=== PATIENT | male | born 1950 | race Caucasian/White ===

== ENCOUNTER 2016-07-24 | Outpatient (CLI) | payer MEDICARE, MEDICAID | END 2016-07-24 15:49 | disposition critical access hospital (66) | CPT/HCPCS: A0425; A0429 ==

== ENCOUNTER 2016-07-24 16:08 | Emergency (ER) | payer MEDICARE, MEDICAID ==
[2016-07-24] MEDS ORDERED: CEPHALEXIN 250 MG CAPSULE PO STA (18:27)
[2016-07-24] MEDS ORDERED: CEPHALEXIN 250 MG CAPSULE PO ONE (18:31)
== END 2016-07-24 19:02 | disposition home or self-care (01) ==
DX: N30.01 Acute cystitis with hematuria (principal); R41.0 Disorientation, unspecified; I10 Essential (primary) hypertension; E11.51 Type 2 diabetes mellitus with diabetic peripheral angiopathy without gangrene; Z79.84 Long term (current) use of oral hypoglycemic drugs; Z86.73 Personal history of transient ischemic attack (TIA), and cerebral infarction without residual deficits; Z79.82 Long term (current) use of aspirin
CPT/HCPCS: 36415; 80053; 80306; 81001; 82550; 83605; 83690; 83735; 85025; 87077; 87086; 99283; 99284; A9270; G0480

== ENCOUNTER 2016-07-25 | Outpatient (CLI) | payer MEDICARE, MEDICAID | END 2016-07-25 15:26 | disposition short-term general hospital (02) | DX: R73.09 Other abnormal glucose (principal) | CPT/HCPCS: A0425; A0427; A0888 ==

== ENCOUNTER 2016-08-23 15:52 | Outpatient (CLI) | payer MEDICARE, MEDICAID | END 2016-08-23 15:53 | disposition critical access hospital (66) | DX: R42 Dizziness and giddiness (principal) | CPT/HCPCS: A0425; A0429 ==

== ENCOUNTER 2016-08-23 16:14 | Emergency (ER) | payer MEDICARE, MEDICAID ==
[2016-08-23] MEDS ORDERED: CIPROFLOXACIN 250 MG TABLET PO STA (20:48)
[2016-08-23] MEDS ORDERED: CIPROFLOXACIN 250 MG TABLET PO ONE (20:52)
== END 2016-08-23 21:10 | disposition home or self-care (01) ==
DX: R42 Dizziness and giddiness (principal); N39.0 Urinary tract infection, site not specified; R53.1 Weakness; H54.41 Blindness, right eye, normal vision left eye; I10 Essential (primary) hypertension; E11.51 Type 2 diabetes mellitus with diabetic peripheral angiopathy without gangrene; Z79.84 Long term (current) use of oral hypoglycemic drugs; Z86.73 Personal history of transient ischemic attack (TIA), and cerebral infarction without residual deficits; Z79.82 Long term (current) use of aspirin
CPT/HCPCS: 36415; 70450; 80048; 81001; 84484; 85025; 87086; 93005; 93010; 93880; 99284; A9270

== ENCOUNTER 2016-09-04 15:00 | Outpatient (CLI) | payer MEDICARE, MEDICAID | END 2016-09-04 15:01 | DX: R31.9 Hematuria, unspecified (principal) ==

== ENCOUNTER 2016-10-16 15:25 | Outpatient (CLI) | payer MEDICARE, MEDICAID | END 2016-10-16 15:26 | disposition home or self-care (01) | DX: I10 Essential (primary) hypertension (principal); E11.9 Type 2 diabetes mellitus without complications ==

== ENCOUNTER 2017-02-12 11:52 | Outpatient (CLI) | payer MEDICARE, MEDICAID | END 2017-02-12 11:53 | disposition critical access hospital (66) | LOC: EMS 11:52 | PROVIDERS: ATTEND Surgery | DX: R56.9 Unspecified convulsions (principal) | CPT/HCPCS: A0425; A0427 ==

== ENCOUNTER 2017-02-12 12:14 | Inpatient (IN) | payer MEDICARE, MEDICAID ==
[2017-02-12 13:02] LABS: BASOPHILS # (AUTO) 0.1 10^3/uL (0.0-0.1); BASOPHILS % (AUTO) 0.8 %; EOSINOPHILS # (AUTO) 0.2 10^3/uL (0.0-0.7); EOSINOPHILS % (AUTO) 2.5 %; HCT - HEMATOCRIT 42.7 % (42.0-52.0); HGB - HEMOGLOBIN 14.5 g/dL (14.0-18.0); LYMPHOCYTES # (AUTO) 0.6 10^3/uL (1.5-3.5); LYMPHOCYTES % (AUTO) 9.6 %; MEAN CORPUSCULAR HEMOGLOBIN 27.7 pg (27.0-31.0); MEAN CORPUSCULAR VOLUME 81.6 fL (80.0-94.0); MEAN PLATELET VOLUME 7.4 fL (7.4-11.4); MONOCYTES # (AUTO) 0.3 10^3/uL (0.0-1.0); NEUTROPHILS % (AUTO) 82.1 %; NUCLEATED RED BLOOD CELLS AUTO 0.1 /100WBC; RED BLOOD COUNT 5.23 10^6/uL (4.70-6.10); RED CELL DISTRIBUTION WIDTH 13.8 % (12.0-15.0); UNCORRECTED WHITE BLOOD COUNT 6.1 x10^3/uL; WHITE BLOOD COUNT 6.1 x10^3/uL (4.8-10.8)
--- NOTE | 2017-02-12 13:05 | ED Physician Documentation ---
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, s/p cerebral stent placed at [facility] in 2014 per EMS, care rep reports a hx of seizures but this has not been noted is prior ER notes nor is pt on any seizure medications so I am not sure this is accurate had a seizure today witnessed by a "bacteriologist medical" per EMS pt was reported to have been seated in a chair and started generalized seizure with LOC and slid out of the chair landing first on his buttocks and then tipping over and hitting his head and ending up face down followed by post ictal period FSBS was 150s no other hx is obtainable - do not know if pt has had fever cough 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 Review of Systems Unable to obtain: Unresponsive Eyes: reports: Loss of vision (blinf R eye) Neurologic: reports: Seizure, Head injury PD PAST MEDICAL HISTORY - Past Medical History Cardiovascular: Hypertension, High cholesterol, Peripheral Vascular Disease Respiratory: None Neuro: CVA Endocrine/Autoimmune: Type 2 diabetes GI: None : None HEENT: Glaucoma Psych: None Musculoskeletal: Osteoarthritis Derm: None - Past Surgical History Past Surgical History: Yes Ortho: Amputation - Present Medications Home Medications: Ambulatory Orders Medication Instructions Recorded Confirmed Amlodipine Besylate 5 mg PO DAILY 06/18/16 07/24/16 Aspirin [Aspirin EC] 81 mg PO DAILY 06/18/16 07/24/16 Metformin HCl [Metformin HCl ER] 500 mg PO DAILYWM 06/18/16 07/24/16 Lisinopril 40 mg PO 02/12/17 - Allergies Allergies/Adverse Reactions: Allergies Allergy/AdvReac Type Severity Reaction Status Date / Time No Known Drug Allergies Allergy Verified 02/12/17 12:19 - Social History Does the pt smoke?: No Smoking Status: Never smoker Does the pt drink ETOH?: No Does the pt have substance abuse?: Yes - Immunizations Immunizations are current?: Yes PD ED PE NORMAL - Vitals Vital signs reviewed: Yes (little tachy) - General General: No: Alert and oriented X 3 (not responding, still post ictal) - HEENT HEENT: No: PERRL (blind cloudy r eye) - Neck Neck: No bony TTP (but too altered to clear) - Cardiac Cardiac: RRR (tachy) - Respiratory Respiratory: No respiratory distress, Clear bilaterally - Abdomen Abdomen: Soft, Non tender (though AMS) - Derm Derm: Normal color - Extremities Extremities: No deformity - Neuro Neuro: No: Alert and oriented X 3 Results - Vitals Vitals: Vital Signs - 24 hr 02/12/17 02/12/17 02/12/17 12:15 14:14 15:30 Temperature 36.8 C Heart Rate 113 H 114 H 119 H Respiratory 16 18 23 Rate Blood Pressure 166/76 H 178/84 H 159/80 H O2 Saturation 99 100 95 Oxygen O2 Source [With Activity] Room air O2 Source Room air - Labs Labs: Laboratory Tests 02/12/17 02/12/17 02/12/17 12:52 12:52 16:05 WBC 6.1 RBC 5.23 Hgb 14.5 Hct 42.7 MCV 81.6 MCH 27.7 MCHC 34.0 RDW 13.8 Plt Count 235 MPV 7.4 Neut # 5.0 Lymph # 0.6 L Karnes # 0.3 Eos # 0.2 Baso # 0.1 Absolute Nucleated RBC 0.00 Nucleated RBCs 0.1 Sodium 135 Potassium 4.5 Chloride 99 L Carbon Dioxide 26 Anion Gap 10.0 BUN 10 Creatinine 1.2 Estimated GFR (MDRD) 61 L Glucose 159 H Calcium 9.5 Urine Color YELLOW Urine Clarity CLEAR Urine pH 8.0 H Ur Specific [place] 1.020 Urine Protein 30 H Urine Glucose (UA) 250 H Urine Ketones NEGATIVE Urine Occult Blood TRACE-INTA Urine Nitrite NEGATIVE Urine Bilirubin NEGATIVE Urine Urobilinogen 0.2 (NORMAL) Ur Leukocyte Esterase NEGATIVE Urine RBC 0-5 Urine WBC 4-5 Ur Squamous Epith Cells RARE Squamous Urine Bacteria Many H Ur Microscopic Review INDICATED Urine Culture Comments INDICATED Urine Opiates Screen Ur Oxycodone Screen Urine Methadone Screen Ur Propoxyphene Screen Ur Barbiturates Screen Ur Tricyclics Screen Ur Phencyclidine Scrn Ur Amphetamine Screen U Methamphetamines Scrn U Benzodiazepines Scrn Urine Cocaine Screen U Cannabinoids Screen 02/12/17 16:05 WBC RBC Hgb Hct MCV MCH MCHC RDW Plt Count MPV Neut # Lymph # Karnes # Eos # Baso # Absolute Nucleated RBC Nucleated RBCs Sodium Potassium Chloride Carbon Dioxide Anion Gap BUN Creatinine Estimated GFR (MDRD) Glucose Calcium Urine Color Urine Clarity Urine pH Ur Specific [place] Urine Protein Urine Glucose (UA) Urine Ketones Urine Occult Blood Urine Nitrite Urine Bilirubin Urine Urobilinogen Ur Leukocyte Esterase Urine RBC Urine WBC Ur Squamous Epith Cells Urine Bacteria Ur Microscopic Review Urine Culture Comments Urine Opiates Screen NEGATIVE Ur Oxycodone Screen NEGATIVE Urine Methadone Screen NEGATIVE Ur Propoxyphene Screen NEGATIVE Ur Barbiturates Screen NEGATIVE Ur Tricyclics Screen NEGATIVE Ur Phencyclidine Scrn NEGATIVE Ur Amphetamine Screen NEGATIVE U Methamphetamines Scrn NEGATIVE U Benzodiazepines Scrn NEGATIVE Urine Cocaine Screen NEGATIVE U Cannabinoids Screen POSITIVE H - Rads (name of study) CTH Radiology: See rad report (no acute) CT CS Radiology: See rad report (degen changes no fx, enlarged thyroid consider thyroid sono (defer to inpt and or PMD as pt to altered to remember right now)) CTA brain Radiology: See rad report (no mass no acute abn, old R infarct, age indet severe segmental stenosis vs occlusion 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, pastent L ICA stent, congenitally small vs steotic prox L ANGELICA A1 seg, no deering will aneurysm seen, consider compare to prior imaging, mild R maxillary sinusitis) CTA neck Radiology: See rad report (no acute) CXR Radiology: See rad report (network applications specialist stable bilateral hilar enlargement and wide mediastinum c/w benign adenopathy or pulm HTN, NACPD) PD MEDICAL DECISION MAKING - ED course ED course: received records from PMD - no hx seizures pt seemed to improved and was talking with the nurse and told her he had no pain / no headache and cooperating with providing a urine sample etc and per caregiver was close to baseline then acute worse, very agitated and confused trying to climb out of bed not communicating or answering questions will get CTA brain - if + transfer - if neg admit to for AMS for MRI etc chart review shows pt was admitted for very similar sx in Jun 2016 and gradually cleared and was able to be dced though cause does not seem to have been identified plan to admit - hospitalist Dr Pillai in ER evaluating pt and he had another seizure - given ativan etiology unclear - got PMD records and don't actually see a hx of seizures despite EMS report - don't know if pt drinks, no reported fever, pt denies a HANNAH , maybe needs MRI but cannot cooperate with same right now pt continued to have episodes of some clonic stiffening but not clear seizure activity - was given ativan and then loaded on keppra - is now somnolent pt going to ICU hospitalist and I discussed and pt may need to be intubated if he deos not start to wake up again as he did earlier, afebrile and denied a HANNAH but etiology unclear so perhaps an LP - hospitalist advises than can req anesthesia to assist in the ICU due to high acuity and volume in the single coverage ED at this time CTA results called to hospitalist Dr Pillai Departure - Departure Disposition: 66 [facility] DC/Xfer Clinical Impression: Altered mental status Qualifiers: Altered mental status type: unspecified Qualified Code(s): R41.82 - Altered mental status, unspecified Condition: Fair Discharge Date/Time: 02/12/17 19:00
[2017-02-12 13:11] LABS: CALCIUM 9.5 mg/dL (8.5-10.3); CREATININE 1.2 mg/dL (0.6-1.2); POTASSIUM 4.5 mmol/L (3.5-5.0)
--- NOTE | 2017-02-12 14:23 | CT Preliminary Report ---
Exam: CT Head W/O IMPRESSION: Stable head CT compared with 08/23/2016. No acute intracranial findings noted. Chronic ch anges are present. [facility] SITE ID: [id number]
--- NOTE | 2017-02-12 14:25 | CT Report ---
EXAM: CT HEAD EXAM DATE: 02/12/2017 01:50 PM. CLINICAL HISTORY: Seizure fell out of chair hit head. COMPARISON: 08/23/2016 TECHNIQUE: Multiaxial CT images were obtained from the foramen magnum to the vertex. IV contrast: Non e. Reformats: Coronal. In accordance with CT protocol optimization, one or more of the following dose reduction techniques w ere utilized for this exam: automated exposure control, adjustment of mA and/or KV based on patient s ize, or use of iterative reconstructive technique. FINDINGS: Parenchyma: No intraparenchymal hemorrhage. No evidence of mass, midline shift, or CT findings of acu te infarction. Old right occipital lobe infarction as before. Miller-white differentiation is distinct. Extraaxial Spaces: Normal for age. No subdural or epidural collections identified. Ventricles: Normal in size and position. Sinuses: Membrane thickening right maxillary sinus. Other Imaged paranasal sinuses, orbits, and masto ids show no significant abnormality. Bones: No evidence of fracture or calvarial defect. Other: None. IMPRESSION: Stable head CT compared with 08/23/2016. No acute intracranial findings noted. Chronic ch anges are present. [facility] Referring Provider Line: [phone] SITE ID: [id number]
--- NOTE | 2017-02-12 14:31 | CT Preliminary Report ---
Exam: CT Cervical Spine W/O IMPRESSION: Degenerative change cervical spine without superimposed acute findings when compared with 06/18/2016. Incidental note made of an enlarged thyroid. Suggest correlation with thyroid ultrasound [facility] SITE ID: [id number]
--- NOTE | 2017-02-12 14:33 | CT Report ---
EXAM: CT CERVICAL SPINE WITHOUT CONTRAST DATE: 02/12/2017 01:50 PM HISTORY: Seizure fell out of chair neck pain COMPARISONS: 06/18/2016 TECHNIQUE: Thin-section axial images were acquired of the cervical spine without contrast. Post-proce ssing: Coronal and sagittal reformats. Other: None. In accordance with CT protocol optimization, one or more of the following dose reduction techniques w ere utilized for this exam: automated exposure control, adjustment of mA and/or KV based on patient s ize, or use of iterative reconstructive technique. FINDINGS: Alignment: Normal. No scoliosis or spondylolisthesis. Bones: No fracture or bone lesion. Degenerative endplate irregularity of C3, C4, C6, and C7. Interspace Levels/Facets: C1-C2 through C7-T1: Moderate stable disk space narrowing C3-C4 and C6-C7. Remaining disk spaces well maintained. Musculature: Normal. No fatty atrophy. Other: Enlarged thyroid gland with calcification and a low attenuation nodule on the right and calci fication on the lower left. Suggest correlation with thyroid ultrasound IMPRESSION: Degenerative change cervical spine without superimposed acute findings when compared with 06/18/2016. Incidental note made of an enlarged thyroid. Suggest correlation with thyroid ultrasound [facility] Referring Provider Line: [phone] SITE ID: [id number]
[2017-02-12] MEDS ORDERED: LORazepam 2 MG/ML SYRINGE IVP STA ×4 (15:39→17:31)
[2017-02-12] MEDS ORDERED: LORazepam 2 MG/ML SYRINGE ONE ×4 (15:44→17:21)
[2017-02-12 16:40] LABS: BILIRUBIN,URINE NEGATIVE (NEGATIVE)
[2017-02-12 16:42] LABS: UA w/ MICROSCOPIC CHARGE YES
--- NOTE | 2017-02-12 16:45 | XRAY Preliminary Report ---
Exam: XR Chest 1 View IMPRESSION: 1. Long-term stability of the bilateral hilar enlargement and mediastinal widening consistent with be nign adenopathy or pulmonary arterial hypertension. 2. No acute cardiopulmonary abnormality. [facility] SITE ID: [id number]
[2017-02-12 16:46] LABS: UR CULTURE IF IND INDICATED
[2017-02-12] MEDS ORDERED: PROCHLORPERAZINE 10 MG/2 ML VIAL IVP PRN (16:49)
[2017-02-12] MEDS ORDERED: ONDANSETRON 4 MG/2 ML VIAL IVP PRN (16:49)
[2017-02-12] MEDS ORDERED: SODIUM CHLORIDE FLUSH 0.9% 10 ML SYRINGE IVP PRN (16:49)
[2017-02-12] MEDS ORDERED: oxyCODONE 5 MG TABLET PO PRN (16:49)
[2017-02-12] MEDS ORDERED: ACETAMINOPHEN 325 MG TABLET PO PRN (16:49)
--- NOTE | 2017-02-12 16:54 | XRAY Report ---
EXAM: CHEST RADIOGRAPHY EXAM DATE: 02/12/2017 04:31 PM. CLINICAL HISTORY: Altered mental status. COMPARISON: 06/18/2016. 06/25/2014. TECHNIQUE: 1 view. FINDINGS: Lungs/Pleura: No focal opacities evident. No pleural effusion. No pneumothorax. Normal lung volumes. Mediastinum: Stable bilateral hilar enlargement since 06/25/2014. Stable widening of the paratracheal stripes since 06/25/2014. Heart is a normal caliber. Other: None. IMPRESSION: 1. Long-term stability of the bilateral hilar enlargement and mediastinal widening consistent with be nign adenopathy or pulmonary arterial hypertension. 2. No acute cardiopulmonary abnormality. [facility] Referring Provider Line: [phone] SITE ID: [id number]
[2017-02-12] MEDS ORDERED: IOPAMIDOL-300 100 ML VIAL IVP ONE (17:03)
[2017-02-12] MEDS: SODIUM CHLORIDE 0.9% 1,000 ML IV SCH (17:30)
--- NOTE | 2017-02-12 17:39 | CT Preliminary Report ---
Exam: CT Neck Angio IMPRESSION (neck CTA): No acute abnormality or significant stenosis of the cervical vertebral or veloz tid arteries. [facility] SITE ID: [id number]
[2017-02-12] MEDS: levETIRAcetam INJ 500 MG in SODIUM CHLORIDE 0.9% 100ML 100 ML IV SCH (17:40)
[2017-02-12] MEDS: LORazepam 2 MG/ML SYRINGE IVP PRN ×2 (17:41→17:51)
--- NOTE | 2017-02-12 17:41 | CT Report ---
EXAM: CT ANGIOGRAM NECK EXAM DATE: 02/12/2017 04:36 PM. CLINICAL HISTORY: Seizure, altered mental status, history of aneurysm. COMPARISON: No prior neck CTA. TECHNIQUE: Routine axial helical imaging was performed from the skull base through the aortic arch. I V Contrast: 80 mL Isovue 300. Reconstructions: Routine multiplanar 3D MIP reconstructions. Evaluation of arterial stenosis is based on a NASCET method of measurement. In accordance with CT protocol optimization, one or more of the following dose reduction techniques w ere utilized for this exam: automated exposure control, adjustment of mA and/or KV based on patient s ize, or use of iterative reconstructive technique. FINDINGS: Moderately enlarged thyroid gland with scattered punctate calcifications and multiple hypodense nodul es or cysts. Mild to moderate chronic multilevel degenerative cervical spinal spondylosis. Congenitally small right cervical vertebral artery, no acute abnormality or flow limiting stenosis id entified. Unremarkable appearance of the congenitally dominant left cervical vertebral artery. No evidence for acute abnormality or focal flow limiting stenosis of the cervical carotid arteries. N egligible atherosclerotic changes. Mild atherosclerotic calcifications its top of the aortic arch. The origins of the great vessels are patent. IMPRESSION: No acute abnormality or significant stenosis of the cervical vertebral or carotid arterie s. [facility] Referring Provider Line: [phone] SITE ID: [id number]
--- NOTE | 2017-02-12 18:01 | CT Preliminary Report ---
Exam: CT Head Angio IMPRESSION: 1. No CT evidence for acute intracranial abnormality or enhancing mass. 2. Moderately prominent but old infarct of the medial right parieto-occipital region. 3. 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 4. Patent appearing distal left ICA stent. 5. Congenitally small versus stenotic proximal left ANGELICA A1 segment. 6. No definite evidence for patent [place] of [place] aneurysm. Given history of aneurysm, comparison w ith prior imaging studies that have confirmed the presence of an aneurysm is suggested, if those rele vant imaging studies can be provided, a comparison addendum can be generated. 7. Mild right maxillary sinusitis. [facility] SITE ID: [id number]
[2017-02-12 18:14] LABS: HEMOGLOBIN A1C 0.82 g/dL
--- NOTE | 2017-02-12 18:16 | CT Report ---
EXAM: CT ANGIOGRAM HEAD EXAM DATE: 02/12/2017 04:36 PM. CLINICAL HISTORY: Altered mental status, seizure, history of aneurysm. COMPARISON: CT of the brain without contrast 06/25/2014. Additional prior head imaging has been perfo rmed including MRI of the brain 06/25/2014, CT of the head without contrast also on 09/08/2015 and as well as 08/23/2016 and 02/12/2017 (at 1349 hrs). TECHNIQUE: Routine helical CTA imaging was performed through the head. IV Contrast: Without and with 80 mL Isovue 300. Reconstructions: Routine multiplanar 3D MIP reconstructions. NASCET Criteria are us ed for stenosis measurements. In accordance with CT protocol optimization, one or more of the following dose reduction techniques w ere utilized for this exam: automated exposure control, adjustment of mA and/or KV based on patient s ize, or use of iterative reconstructive technique. FINDINGS: Brain CT without contrast: Chronic encephalomalacia and gliosis in the medial right parieto-occipital region measuring up to 4 x 3 cm in cross section. This is consistent with an old ischemic infarct. Mild diffuse atrophy. No hyd rocephalus, mass effect, midline shift or evidence for acute cortical infarct or hemorrhage. Small right maxillary sinus air-fluid level with minimal mucosal thickening that likely represents si nus inflammation. Brain CT with contrast: No abnormal enhancement. Head CT angiogram: Patent but congenitally very small right intradural vertebral artery. Unremarkable appearance of the left intradural vertebral artery and basilar artery. Unremarkable appearance of the left ACCOUNTS PAYABLE SUPERVISOR which ap pears to arise from a origin. Patent but small, irregular and potentially stenotic right service unit operator ior communicating artery. Age-indeterminate severe segmental stenosis versus occlusion in the region of the right ACCOUNTS PAYABLE SUPERVISOR P2P3 rula ction. This abnormal segment of artery measures about 3-4 mm in length. Contrast opacification of the lumen of the right ACCOUNTS PAYABLE SUPERVISOR is present on both sides of this lesion. The distal internal carotid arteries appear to be patent. There are findings of previous stent placem ent on the left beginning at the level of the proximal cavernous ICA and ending at the level of the l eft P-comm origin. Patent well-developed right ANGELICA A1 segment. Hypoplastic versus occluded proximal left ANGELICA A1 segment. Unremarkable anterior communicating artery. No other evidence for proximal ANGELICA abnormality. No proximal flow limiting stenosis or occlusion of the middle cerebral arteries. This study does not demonstrate a contrast opacified aneurysm of the pilot station of Amaral. IMPRESSION: 1. No CT evidence for acute intracranial abnormality or enhancing mass. 2. Moderately prominent but but old infarct of the medial right parieto-occipital region. 3. Age-indeterminate severe segmental stenosis versus occlusion of the right ACCOUNTS PAYABLE SUPERVISOR at the P2P3 junctio n. 4. Patent-appearing distal left ICA stent. 5. Congenitally small versus stenotic proximal left ANGELICA A1 segment. 6. No definite evidence for patent pilot station of [place]ar[place] aneurysm. Given the history of aneurysm, comparis on with prior imaging studies that have confirmed the presence of an aneurysm is suggested, if those relevant imaging studies can be provided, a comparison addendum can be generated. 7. Mild right maxillary sinusitis. [facility] Referring Provider Line: [phone] SITE ID: [id number]
[2017-02-12 18:40] LABS: FOLATE 9.39 ng/mL (5.90 - >24.8)
[2017-02-12 18:49] LABS: THYROID STIMULATING HORMONE 1.49 uIU/mL (0.34-5.60)
[2017-02-12] MEDS ORDERED: CYANOCOBALAMIN 1,000 MCG/ML VIAL IM SCH (19:03)
--- NOTE | 2017-02-12 19:15 | HISTORY & PHYSICAL EXAMINATION ---
Chief Complaint - Chief Complaint Chief Complaint: Altered mental status History of Present Illness - Admitted From Admitted From:: Emergency Department - History Obtained From Records Reviewed: Yes History obtained from: Medical records, emergency room records, patients caregiver Exam Limitations: Patient unresponsive, non verbal unable to provide history - History of Present Illness HPI Comment/Other: Patient is a 66-year-old gentleman with a past medical history significant for diabetes, peripheral vascular disease, CKG, peripheral neuropathy, retinopathy, hypertension, right-sided occipital infarct and cerebral aneurysm with a left ICA stent who presented to the emergency department with a chief complaint of altered mental status. The patient was unable to provide any history as he was nonverbal and barely arousable when I saw the patient. The history was derived from the patient's medical records, history obtained by the emergency room physician and nursing staff as well as from the patient's caregiver. The patient was in his normal state of health until this morning when his caregiver noted the patient had a witnessed seizure that lasted about 2 minutes. The caregiver called 911 on arrival of EMS the patient's blood sugar was 156 patient was drowsy and nonverbal for EMS. The patient was brought into the emergency department. Initially the emergency department the patient was post ictal he was very drowsy difficult to arouse. Eventually the patient seemed to return to his baseline mental status as he was answering questions appropriately, was easy to understand and was even following commands. The patient got up to the side of the bed asked if he could urinate and use the urinal to urinate. When I arrived in the emergency department the patient appeared again to be seizing he was very rigid turned over to his right side and shaking. The patient again was post ictal and very slow to respond, nonverbal. During the remainder of his time in the emergency department the patient continued to have episodes of what appeared to be seizure activity. The patient received a total of 6 mg of IV Ativan in the emergency department. The patient was then quite drowsy prior to being admitted to the ICU. The patient appeared to be in status epilepticus. Patient underwent extensive workup in the emergency department including electrolytes which were within normal limits. The patient's B12 was slightly decreased but otherwise remainder of his labs are within normal limits. Patient did not have any leukocytosis or anemia. Patient's urine showed 4-5 WBCs with many bacteria however had negative leukocyte esterase and negative nitrates. Patient's urine tox was negative for alcohol. Patient underwent imaging with a chest x-ray which did not show any acute process. Patient also had a CT of his cervical spine which showed degenerative changes of the cervical spine without superposed acute findings. Patient was found to have incidental enlarged thyroid. The patient's TSH was normal. The CT of the patient's head showed no acute intracranial findings. CT of the patient' s head showed no evidence for acute intracranial abnormality or enhancing mass. It did show an age indeterminate severe segmental stenosis versus occlusion of the right NURSE P2-P3 junction. It also showed a moderately prominent but old infarct of the medial right parietal/occipital region. The patient did have a patent appearing distal left ICA stent. Given the patient's altered mental status and continued rigidity which appeared to be seizure-like activity the patient was admitted to the ICU and is low threshold for need to intubate given the amount of sedation that he has received. The patient was given Her IV prior to being admitted. Review of Systems - Other Findings Other Findings: unable to obtain secondary to patient being unresponsive and nonverbal. History - Past Medical History Cardiovascular: reports: Hypertension, High cholesterol, Peripheral Vascular Disease Respiratory: reports: None Neuro: reports: CVA, Peripheral neuropathy, Other (cerebral aneurysm) Endocrine/Autoimmune: reports: Type 2 diabetes GI: reports: None : reports: Renal insuffiency (CKD) HEENT: reports: Glaucoma Psych: reports: None Musculoskeletal: reports: Osteoarthritis Derm: reports: None MRSA Hx?: No - Past Surgical History Ortho: reports: Amputation - Family & Social History Family History Comment/Other: unable to obtain family history unresponsive and nonverbal. According to previous records patient's father when he was 12. Mother was diabetic and had a stroke. Social History Notes: Obtained from previous records. He is originally from [place], moved to [place] 2002. He lived here for work. 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 He lives on his own and [place] but has james workers who come into the home Saturday through Saturday. The patient does have a caregiver. He is an only child and both of his parents are . He said he is never been and he has no children. He does not smoke does not drink or use any illicit drugs. - Substance History Use: Uses substance without health or social issues: NONE Abuse: Recurrent use of substance despite neg consequences: NONE Dependence: Experiences withdrawal or developed tolerances: NONE - POLST Patient has POLST: No POLST Status: Full Code Meds/Allgy - Home Medications Home Medications: Ambulatory Orders Medication Instructions Recorded Confirmed Amlodipine Besylate 5 mg PO DAILY 06/18/16 07/24/16 Aspirin [Aspirin EC] 81 mg PO DAILY 06/18/16 07/24/16 Metformin HCl [Metformin HCl ER] 500 mg PO DAILYWM 06/18/16 07/24/16 Lisinopril 40 mg PO 02/12/17 - Allergies Allergies/Adverse Reactions: Allergies Allergy/AdvReac Type Severity Reaction Status Date / Time No Known Drug Allergies Allergy Verified 02/12/17 12:19 Exam - Vital Signs Reviewed Vital Signs: Yes Vital Signs: Vital Signs x48h Temp Pulse Resp BP Pulse Ox 02/12/17 17:52 37.5 C 109 H 23 166/93 H 97 02/12/17 17:30 120 H 24 148/124 H 97 - Physical Exam General Appearance: positive: Moderate distress (rigid with tonic-clonic), Other (nonverbal, very difficult to arouse.) Eyes Bilateral: positive: Normal inspection, PERRL, EOMI, No lid inflammation, Conjunctivae nml, No scleral icterus ENT: positive: ENT inspection nml, Pharynx nml, Dry mucous membranes. negative : Purulent nasal drainage, Pharyngeal erythema, Oral lesions Neck: positive: Nml inspection, Thyroid nml, No JVD, Trachea midline. negative : Thyromegaly, Lymphadenopathy (R), Lymphadenopathy (L), Carotid bruit, Tracheal deviation Respiratory: positive: Chest non-tender, No respiratory distress, Breath sounds nml. negative: Wheezes, Rales, Rhonchi Cardiovascular: positive: No murmur, No gallop, Tachycardia. negative: Systolic murmur, Diastolic murmur Peripheral Pulses: positive: 2+ Abdomen: positive: Non-tender, No organomegaly, Nml bowel sounds, No distention. negative: Guarding, Rebound, Hepatomegaly, Splenomegaly Back: positive: Nml inspection. negative: CVA tenderness (R), CVA tenderness (L ) Skin: positive: Color nml, No rash, Warm. negative: Cyanosis, Pallor Extremities: positive: Other (Cathy extremity) Neurologic/Psychiatric: positive: Other (patient unresponsive, barely arousable , nonverbal with rigid upper and lower extremities.) Conclusion/Plan - Problem List (1) Encephalopathy Conclusion/Plan: Appears to be likely secondary to seizure activity patient does have several areas of stenosis and old infarcts on CTA which could be origin for seizures No leukocytosis or fevers B12 slightly low but not enough to cause symptoms TSH normal RPR pending UA and CXR negative If patient spikes fever consider LP Plan: Started on keppra IV BID Ativan prn If patient continues to be unresponsive may need intubation We will consult neurology for further recs at [facility] for tomorrow Tele monitoring Neuro checks (2) Status epilepticus Conclusion/Plan: Patient presented with seizure at home and appeared to be post ictal He was initially improving but then had another episode of seizure activity followed by several more episodes requiring 6 mg IV ativan and IV keppra 500 mg to resolve patient now unresponsive and very sedated may need intubation Plan: Plan: Started on keppra IV BID Ativan prn If patient continues to be unresponsive may need intubation We will consult neurology for further recs at [facility] for tomorrow Tele monitoring Neuro checks (3) Hypertension Conclusion/Plan: BP very elevated when patient having seizures Will continue home meds Monitor closely Qualifiers: Hypertension type: essential hypertension Qualified Code(s): I10 - Essential (primary) hypertension (4) Diabetes Conclusion/Plan: Place on sliding scale insulin Hold metformin Check HbA1C BG well controlled DM diet Monitor BG Qualifiers: Diabetes mellitus type: type 2 Diabetes mellitus complication detail: with foot ulcer Diabetes mellitus assistant to the director insulin use: without assistant to the director use (5) History of CVA (cerebrovascular accident) Conclusion/Plan: On ASA at home but not lipitor Continue home dose of asa Check lipid profile MRI in the morning No evidence of acute stroke on CT or CTA (6) Vitamin B12 deficiency Conclusion/Plan: Replace B12 IM (7) Prophylactic use of low molecular weight heparin for venous thromboembolism Conclusion/Plan: Place on lovenox while hospitalized - Lab Results Lab results reviewed: Yes Fish Bones: 02/12/17 12:52 02/12/17 12:52 Other Lab Results: Laboratory Results WBC 6.1 x10^3/uL (4.8-10.8) 02/12/17 12:52 RBC 5.23 10^6/uL (4.70-6.10) 02/12/17 12:52 Hgb 14.5 g/dL (14.0-18.0) 02/12/17 12:52 Hct 42.7 % (42.0-52.0) 02/12/17 12:52 MCV 81.6 fL (80.0-94.0) 02/12/17 12:52 MCH 27.7 pg (27.0-31.0) 02/12/17 12:52 MCHC 34.0 g/dL (32.0-36.0) 02/12/17 12:52 RDW 13.8 % (12.0-15.0) 02/12/17 12:52 Plt Count 235 10^3/uL (130-450) 02/12/17 12:52 MPV 7.4 fL (7.4-11.4) 02/12/17 12:52 Neut # 5.0 10^3/uL (1.5-6.6) 02/12/17 12:52 Lymph # 0.6 10^3/uL (1.5-3.5) L 02/12/17 12:52 [place] # 0.3 10^3/uL (0.0-1.0) 02/12/17 12:52 Eos # 0.2 10^3/uL (0.0-0.7) 02/12/17 12:52 Baso # 0.1 10^3/uL (0.0-0.1) 02/12/17 12:52 Absolute Nucleated RBC 0.00 x10^3/uL 02/12/17 12:52 Nucleated RBCs 0.1 /100WBC 02/12/17 12:52 Sodium 135 mmol/L (135-145) 02/12/17 12:52 Potassium 4.5 mmol/L (3.5-5.0) 02/12/17 12:52 Chloride 99 mmol/L (101-111) L 02/12/17 12:52 Carbon Dioxide 26 mmol/L (21-32) 02/12/17 12:52 Anion Gap 10.0 (6-13) 02/12/17 12:52 BUN 10 mg/dL (6-20) 02/12/17 12:52 Creatinine 1.2 mg/dL (0.6-1.2) 02/12/17 12:52 Estimated GFR (MDRD) 61 (>89) L 02/12/17 12:52 Glucose 159 mg/dL (70-100) H 02/12/17 12:52 Glycated Hemoglobin 6.8 % (4.6-6.2) H 02/12/17 17:47 Estim Average Glucose 148 (70-100) H 02/12/17 17:47 Calcium 9.5 mg/dL (8.5-10.3) 02/12/17 12:52 Vitamin B12 141 pg/mL (180-914) L 02/12/17 17:47 Folate 9.39 ng/mL (5.90 - >24.8) 02/12/17 17:47 TSH 1.49 uIU/mL (0.34-5.60) 02/12/17 17:47 Urine Color YELLOW 02/12/17 16:05 Urine Clarity CLEAR (CLEAR) 02/12/17 16:05 Urine pH 8.0 PH (5.0-7.5) H 02/12/17 16:05 Ur Specific [place] 1.020 (1.002-1.030) 02/12/17 16:05 Urine Protein 30 mg/dL (NEGATIVE) H 02/12/17 16:05 Urine Glucose (UA) 250 mg/dL (NEGATIVE) H 02/12/17 16:05 Urine Ketones NEGATIVE mg/dL (NEGATIVE) 02/12/17 16:05 Urine Occult Blood TRACE-INTA (NEGATIVE) 02/12/17 16:05 Urine Nitrite NEGATIVE (NEGATIVE) 02/12/17 16:05 Urine Bilirubin NEGATIVE (NEGATIVE) 02/12/17 16:05 Urine Urobilinogen 0.2 (NORMAL) E.U./dL (NORMAL) 02/12/17 16:05 Ur Leukocyte Esterase NEGATIVE (NEGATIVE) 02/12/17 16:05 Urine RBC 0-5 /HPF (0-5) 02/12/17 16:05 Urine WBC 4-5 /HPF (0-3) 02/12/17 16:05 Ur Squamous Epith Cells RARE Squamous (<= Few) 02/12/17 16:05 Urine Bacteria Many /HPF (None Seen) H 02/12/17 16:05 Ur Microscopic Review INDICATED 02/12/17 16:05 Urine Culture Comments INDICATED 02/12/17 16:05 Ethyl Alcohol < 5.0 mg/dL 02/12/17 17:47 - Diagnostic Imaging Results Diagnostic Imaging Results: positive: Final report reviewed Diagnostic Imaging Results Comments: Patient underwent imaging with a chest x-ray which did not show any acute process. Patient also had a CT of his cervical spine which showed degenerative changes of the cervical spine without superposed acute findings. Patient was found to have incidental enlarged thyroid. The patient's TSH was normal. The CT of the patient's head showed no acute intracranial findings. CT of the patient' s head showed no evidence for acute intracranial abnormality or enhancing mass. It did show an age indeterminate severe segmental stenosis versus occlusion of the right NURSE P2-P3 junction. It also showed a moderately prominent but old infarct of the medial right parietal/occipital region. The patient did have a patent appearing distal left ICA stent. Issues/Core Measures - Anticipated LOS Anticipated Stay Length: 2 or more midnights - DVT/VTE - Prophylaxis VTE/DVT Prophylaxis med ordered at admit?: Yes
[2017-02-12] MEDS: INSULIN ASPART 300 UNIT/3 ML PEN SUBQ SCH ×2 (19:51→20:32)
[2017-02-12] MEDS ORDERED: SODIUM CHLORIDE FLUSH 0.9% 10 ML SYRINGE IVP ONE (19:53)
[2017-02-12] MEDS: SODIUM CHLORIDE FLUSH 0.9% 10 ML SYRINGE IVP SCH (21:15)
[2017-02-13] MEDS: SODIUM CHLORIDE 0.9% 1,000 ML IV SCH (00:54)
[2017-02-13] MEDS: SODIUM CHLORIDE FLUSH 0.9% 10 ML SYRINGE IVP SCH ×2 (01:53→10:19)
[2017-02-13 05:26] LABS: BASOPHILS # (AUTO) 0.1 10^3/uL (0.0-0.1); BASOPHILS % (AUTO) 0.6 %; EOSINOPHILS # (AUTO) 0.1 10^3/uL (0.0-0.7); EOSINOPHILS % (AUTO) 0.7 %; HCT - HEMATOCRIT 40.4 % (42.0-52.0); HGB - HEMOGLOBIN 13.8 g/dL (14.0-18.0); LYMPHOCYTES # (AUTO) 0.7 10^3/uL (1.5-3.5); LYMPHOCYTES % (AUTO) 8.1 %; MEAN CORPUSCULAR HEMOGLOBIN 28.2 pg (27.0-31.0); MEAN CORPUSCULAR VOLUME 82.8 fL (80.0-94.0); MEAN PLATELET VOLUME 7.4 fL (7.4-11.4); MONOCYTES # (AUTO) 0.6 10^3/uL (0.0-1.0); MONOCYTES % (AUTO) 6.1 %; NEUTROPHILS # (AUTO) 7.8 10^3/uL (1.5-6.6); NEUTROPHILS % (AUTO) 84.5 %; RED BLOOD COUNT 4.88 10^6/uL (4.70-6.10); RED CELL DISTRIBUTION WIDTH 13.7 % (12.0-15.0); UNCORRECTED WHITE BLOOD COUNT 9.2 x10^3/uL; WHITE BLOOD COUNT 9.2 x10^3/uL (4.8-10.8)
[2017-02-13 05:31] LABS: PT - PROTHROMBIN TIME 11.6 secs (9.9-12.6)
[2017-02-13 05:39] LABS: ALBUMIN/GLOBULIN RATIO 1.2 (1.0-2.2); BILIRUBIN,TOTAL 0.6 mg/dL (0.2-1.0); MAGNESIUM 1.7 mg/dL (1.7-2.8); PHOSPHORUS 2.9 mg/dL (2.5-4.6); POTASSIUM 4.1 mmol/L (3.5-5.0); TOTAL PROTEIN 7.6 g/dL (6.7-8.2)
[2017-02-13 05:43] LABS: CHOL/HDL RATIO 4.9 (<5.0); CHOLESTEROL 193 mg/dL; HDL CHOLESTEROL 39 mg/dL; LDL/HDL RATIO 3.6 (<3.6); TRIGLYCERIDES 70 mg/dL; VLDL CHOLESTEROL 14 mg/dL
[2017-02-13] MEDS ORDERED: PANTOPRAZOLE 40 MG TABLET PO SCH (07:00)
[2017-02-13] MEDS: INSULIN ASPART 300 UNIT/3 ML PEN SUBQ SCH ×2 (08:24→12:08)
[2017-02-13] MEDS ORDERED: amLODIPine 5 MG TABLET PO SCH (09:00)
[2017-02-13] MEDS ORDERED: ASPIRIN EC 81 MG TABLET PO SCH (09:00)
[2017-02-13] MEDS ORDERED: POLYETHYLENE GLYCOL 3350 17 GM PACKET PO SCH (09:00)
[2017-02-13] MEDS ORDERED: ENOXAPARIN 40 MG/0.4 ML SYRINGE SUBQ SCH (09:00)
[2017-02-13] MEDS: levETIRAcetam INJ 500 MG in SODIUM CHLORIDE 0.9% 100ML 100 ML IV SCH (10:19)
--- NOTE | 2017-02-13 11:40 | MRI Preliminary Report ---
Exam: MRI Brain W/O Impression: 1. Artifact from patient motion significantly limits the diagnostic quality of this study. 2. Again demonstrated is encephalomalacia in mesial right parietal-occipital region consistent with t he sequela of remote infarction in right DIRECTOR OF LEARNING territory. In addition, there is hemosiderin along the m edial wall of the atrium of right lateral ventricle, consistent with the sequela of prior hemorrhage in this area. 3. There is a tiny focus of magnetic susceptibility artifact in left jurado radiata that probably rep resents hemosiderin from previous microhemorrhage. Main differential diagnostic considerations for mi crohemorrhage in a patient of this age are prior trauma versus chronic hypertension. 4. No other significant intracranial abnormality is identified on this unenhanced brain MRI. In parti cular, there is no evidence of acute infarction on DWI. SITE ID: [id number]
--- NOTE | 2017-02-13 13:45 | Discharge Plan ---
Discharge Plan Disposition: Home, Self Care Condition: Fair Prescriptions: levETIRAcetam [Keppra] 500 mg PO BID #60 tablet Atorvastatin [Lipitor] 80 mg PO QPM #30 tablet Diet: Diabetic Activity Restrictions: Do not drive x1 year Shower Restrictions: No Driving Restrictions: No Weight Bearing: Full Weight Additional Instructions or Follow Up instructions: You need to get an ultrasound of your thyroid gland. You need to follow up with your PCP and get a referral for neurology. You have new onset seizure disorder likely do to your history of strokes and aneurysms. You have been started on a cholesterol medication to help prevent future caldera. You have also been started on a medication to help prevent seizures that you need to take twice a day. No Smoking: If you smoke, Please STOP! Call for help.
--- NOTE | 2017-02-13 13:55 | DISCHARGE SUMMARY ---
Discharge Summary Admit Date: 02/12/17 Discharge Date: 02/13/17 Discharging Provider: Ross Plilai MD Primary Care Provider: Nick Mcgovern MD Code Status: Attempt Resuscitation Condition at Discharge: Fair Discharge Disposition: 01 Home, Self Care - DIAGNOSES Admission Diagnoses: 1. Encephalopathy 2. Status epilepticus 3. Hypertension 4. Diabetes 5. History of CVA 6. Vitamin B 12 deficiency 7. DVT prophylaxis 8. Enlarged thyroid Discharge Diagnoses with Status of Each Condition: 1. Status epilepticus 2.vitamin B 12 deficiency 3. Enlarged thyroid 4.hypertension 5. History of CVA - HPI History of Present Illness: Patient is a 66-year-old gentleman with a past medical history significant for diabetes, peripheral vascular disease, CKG, peripheral neuropathy, retinopathy, hypertension, right-sided occipital infarct and cerebral aneurysm with a left ICA stent who presented to the emergency department with a chief complaint of altered mental status. The patient was unable to provide any history as he was nonverbal and barely arousable when I saw the patient. The history was derived from the patient's medical records, history obtained by the emergency room physician and nursing staff as well as from the patient's caregiver. The patient was in his normal state of health until this morning when his caregiver noted the patient had a witnessed seizure that lasted about 2 minutes. The caregiver called 911 on arrival of EMS the patient's blood sugar was 156 patient was drowsy and nonverbal for EMS. The patient was brought into the emergency department. Initially the emergency department the patient was post ictal he was very drowsy difficult to arouse. Eventually the patient seemed to return to his baseline mental status as he was answering questions appropriately, was easy to understand and was even following commands. The patient got up to the side of the bed asked if he could urinate and use the urinal to urinate. When I arrived in the emergency department the patient appeared again to be seizing he was very rigid turned over to his right side and shaking. The patient again was post ictal and very slow to respond, nonverbal. During the remainder of his time in the emergency department the patient continued to have episodes of what appeared to be seizure activity. The patient received a total of 6 mg of IV Ativan in the emergency department. The patient was then quite drowsy prior to being admitted to the ICU. The patient appeared to be in status epilepticus. Patient underwent extensive workup in the emergency department including electrolytes which were within normal limits. The patient's B12 was slightly decreased but otherwise remainder of his labs are within normal limits. Patient did not have any leukocytosis or anemia. Patient's urine showed 4-5 WBCs with many bacteria however had negative leukocyte esterase and negative nitrates. Patient's urine tox was negative for alcohol. Patient underwent imaging with a chest x-ray which did not show any acute process. Patient also had a CT of his cervical spine which showed degenerative changes of the cervical spine without superposed acute findings. Patient was found to have incidental enlarged thyroid. The patient's TSH was normal. The CT of the patient's head showed no acute intracranial findings. CT of the patient' s head showed no evidence for acute intracranial abnormality or enhancing mass. It did show an age indeterminate severe segmental stenosis versus occlusion of the right EYE DROPPER ASSEMBLER P2-P3 junction. It also showed a moderately prominent but old infarct of the medial right parietal/occipital region. The patient did have a patent appearing distal left ICA stent. Given the patient's altered mental status and continued rigidity which appeared to be seizure-like activity the patient was admitted to the ICU and is low threshold for need to intubate given the amount of sedation that he has received. The patient was given Her IV prior to being admitted. - HOSPITAL COURSE Hospital Course: After presentation to the intensive care unit patient was initially quite drowsy and lethargic. Consideration was made to intubate the patient to protect his airway however over the course of the evening the patient became more alert and aware. He was following commands and return to his normal baseline mental status by the next morning. Patient had no subsequent seizures after starting Keppra. Patient's Keppra was switched to by mouth. Patient did undergo MRI which did not reveal any acute findings. Patient was found to have an elevated LDL. Patient was discharged home on by mouth Keppra and Lipitor. Patient was asked to followup with his primary care physician and will need referral for neurology. Patient also needs a followup thyroid ultrasound as he did have an enlarged thyroid on CT of his cervical spine. The patient's echocardiogram did not reveal any cardiac thrombus. Patient's neuro exam remained normal once patient returned to his baseline mental status. It was explained to the patient that he is not to drive, swim or get up on any roofs for the next 6 months as he has had seizure. - ALLERGIES Allergies/Adverse Reactions: Allergies Allergy/AdvReac Type Severity Reaction Status Date / Time No Known Drug Allergies Allergy Verified 02/12/17 12:19 - MEDICATIONS Home Medications: Ambulatory Orders Medication Instructions Recorded Confirmed Amlodipine Besylate 5 mg PO DAILY 06/18/16 02/13/17 Aspirin [Aspirin EC] 81 mg PO DAILY 06/18/16 02/13/17 Metformin HCl [Metformin HCl ER] 500 mg PO BIDWM 06/18/16 02/13/17 Lisinopril 40 mg PO DAILY 02/12/17 02/13/17 Atorvastatin [Lipitor] 80 mg PO QPM #30 tablet 02/13/17 Cetirizine [ZyrTEC] 10 mg PO DAILY 02/13/17 02/13/17 Docusate Sodium [Stool Softener] 250 mg PO DAILY 02/13/17 02/13/17 Gabapentin 100 mg PO DAILY 02/13/17 02/13/17 Meloxicam 15 mg PO DAILY 02/13/17 02/13/17 Tamsulosin HCl 0.4 mg PO DAILY 02/13/17 02/13/17 levETIRAcetam [Keppra] 500 mg PO BID #60 tablet 02/13/17 - PHYSICAL EXAM AT DISCHARGE General Appearance: positive: No acute distress, Alert Eyes Bilateral: positive: Normal inspection, PERRL, EOMI, No lid inflammation, Conjunctivae nml, No scleral icterus ENT: positive: ENT inspection nml, Pharynx nml, No signs of dehydration. negative: Purulent nasal drainage, Pharyngeal erythema, Oral lesions Neck: positive: Nml inspection, Thyroid nml, No JVD, Trachea midline. negative : Thyromegaly, Lymphadenopathy (R), Lymphadenopathy (L), Carotid bruit, Tracheal deviation Respiratory: positive: Chest non-tender, No respiratory distress, Breath sounds nml. negative: Wheezes, Rales, Rhonchi Cardiovascular: positive: Regular rate & rhythm, No murmur, No gallop Peripheral Pulses: positive: 2+ Abdomen: positive: Non-tender, No organomegaly, Nml bowel sounds, No distention. negative: Guarding, Rebound, Hepatomegaly, Splenomegaly Back: positive: Nml inspection. negative: CVA tenderness (R), CVA tenderness (L ) Skin: positive: Color nml, No rash, Warm. negative: Cyanosis, Pallor Extremities: positive: Non-tender, Full ROM, Nml appearance, No pedal edema Neurologic/Psychiatric: positive: Oriented x3, CN's nml (2-12), Sensation nml, Mood/affect nml, Weakness - LABS Result Diagrams: 02/13/17 05:17 02/13/17 05:17 Other Lab Results: Laboratory Results WBC 9.2 x10^3/uL (4.8-10.8) 02/13/17 05:17 RBC 4.88 10^6/uL (4.70-6.10) 02/13/17 05:17 Hgb 13.8 g/dL (14.0-18.0) L 02/13/17 05:17 Hct 40.4 % (42.0-52.0) L 02/13/17 05:17 MCV 82.8 fL (80.0-94.0) 02/13/17 05:17 MCH 28.2 pg (27.0-31.0) 02/13/17 05:17 MCHC 34.0 g/dL (32.0-36.0) 02/13/17 05:17 RDW 13.7 % (12.0-15.0) 02/13/17 05:17 Plt Count 224 10^3/uL (130-450) 02/13/17 05:17 MPV 7.4 fL (7.4-11.4) 02/13/17 05:17 Neut # 7.8 10^3/uL (1.5-6.6) H 02/13/17 05:17 Lymph # 0.7 10^3/uL (1.5-3.5) L 02/13/17 05:17 Giles # 0.6 10^3/uL (0.0-1.0) 02/13/17 05:17 Eos # 0.1 10^3/uL (0.0-0.7) 02/13/17 05:17 Baso # 0.1 10^3/uL (0.0-0.1) 02/13/17 05:17 Absolute Nucleated RBC 0.00 x10^3/uL 02/13/17 05:17 Nucleated RBCs 0.0 /100WBC 02/13/17 05:17 PT 11.6 secs (9.9-12.6) 02/13/17 05:17 INR 1.0 (0.8-1.2) 02/13/17 05:17 Sodium 137 mmol/L (135-145) 02/13/17 05:17 Potassium 4.1 mmol/L (3.5-5.0) 02/13/17 05:17 Chloride 102 mmol/L (101-111) 02/13/17 05:17 Carbon Dioxide 28 mmol/L (21-32) 02/13/17 05:17 Anion Gap 7.0 (6-13) 02/13/17 05:17 BUN 13 mg/dL (6-20) 02/13/17 05:17 Creatinine 1.0 mg/dL (0.6-1.2) 02/13/17 05:17 Estimated GFR (MDRD) 75 (>89) L 02/13/17 05:17 Glucose 133 mg/dL (70-100) H 02/13/17 05:17 POC Whole Bld Glucose 183 mg/dL (70 - 100) H 02/13/17 11:34 Glycated Hemoglobin 6.8 % (4.6-6.2) H 02/12/17 17:47 Estim Average Glucose 148 (70-100) H 02/12/17 17:47 Lactic Acid 1.3 mmol/L (0.5-2.2) 02/13/17 05:17 Calcium 9.0 mg/dL (8.5-10.3) 02/13/17 05:17 Phosphorus 2.9 mg/dL (2.5-4.6) 02/13/17 05:17 Magnesium 1.7 mg/dL (1.7-2.8) 02/13/17 05:17 Total Bilirubin 0.6 mg/dL (0.2-1.0) 02/13/17 05:17 AST 24 IU/L (10-42) 02/13/17 05:17 ALT 17 IU/L (10-60) 02/13/17 05:17 Alkaline Phosphatase 76 IU/L (42-121) 02/13/17 05:17 Ammonia 24.4 umol/L (7-35) 02/12/17 19:30 Total Protein 7.6 g/dL (6.7-8.2) 02/13/17 05:17 Albumin 4.1 g/dL (3.2-5.5) 02/13/17 05:17 Globulin 3.5 g/dL (2.1-4.2) 02/13/17 05:17 Albumin/Globulin Ratio 1.2 (1.0-2.2) 02/13/17 05:17 Triglycerides 70 mg/dL (-149) 02/13/17 05:17 Cholesterol 193 mg/dL (-199) 02/13/17 05:17 LDL Cholesterol, Calc 140 mg/dL (-129) H 02/13/17 05:17 VLDL Cholesterol 14 mg/dL 02/13/17 05:17 HDL Cholesterol 39 mg/dL (60-) L 02/13/17 05:17 LDL/HDL Ratio 3.6 (<3.6) 02/13/17 05:17 Cholesterol/HDL Ratio 4.9 (<5.0) 02/13/17 05:17 Vitamin B12 141 pg/mL (180-914) L 02/12/17 17:47 Folate 9.39 ng/mL (5.90 - >24.8) 02/12/17 17:47 TSH 1.49 uIU/mL (0.34-5.60) 02/12/17 17:47 Urine Color YELLOW 02/12/17 16:05 Urine Clarity CLEAR (CLEAR) 02/12/17 16:05 Urine pH 8.0 PH (5.0-7.5) H 02/12/17 16:05 Ur Specific [place] 1.020 (1.002-1.030) 02/12/17 16:05 Urine Protein 30 mg/dL (NEGATIVE) H 02/12/17 16:05 Urine Glucose (UA) 250 mg/dL (NEGATIVE) H 02/12/17 16:05 Urine Ketones NEGATIVE mg/dL (NEGATIVE) 02/12/17 16:05 Urine Occult Blood TRACE-INTA (NEGATIVE) 02/12/17 16:05 Urine Nitrite NEGATIVE (NEGATIVE) 02/12/17 16:05 Urine Bilirubin NEGATIVE (NEGATIVE) 02/12/17 16:05 Urine Urobilinogen 0.2 (NORMAL) E.U./dL (NORMAL) 02/12/17 16:05 Ur Leukocyte Esterase NEGATIVE (NEGATIVE) 02/12/17 16:05 Urine RBC 0-5 /HPF (0-5) 02/12/17 16:05 Urine WBC 4-5 /HPF (0-3) 02/12/17 16:05 Ur Squamous Epith Cells RARE Squamous (<= Few) 02/12/17 16:05 Urine Bacteria Many /HPF (None Seen) H 02/12/17 16:05 Ur Microscopic Review INDICATED 02/12/17 16:05 Urine Culture Comments INDICATED 02/12/17 16:05 Urine Opiates Screen NEGATIVE (NEGATIVE) 02/12/17 16:05 Ur Oxycodone Screen NEGATIVE (NEGATIVE) 02/12/17 16:05 Urine Methadone Screen NEGATIVE (NEGATIVE) 02/12/17 16:05 Ur Propoxyphene Screen NEGATIVE (NEGATIVE) 02/12/17 16:05 Ur Barbiturates Screen NEGATIVE (NEGATIVE) 02/12/17 16:05 Ur Tricyclics Screen NEGATIVE (NEGATIVE) 02/12/17 16:05 Ur Phencyclidine Scrn NEGATIVE (NEGATIVE) 02/12/17 16:05 Ur Amphetamine Screen NEGATIVE (NEGATIVE) 02/12/17 16:05 U Methamphetamines Scrn NEGATIVE (NEGATIVE) 02/12/17 16:05 U Benzodiazepines Scrn NEGATIVE (NEGATIVE) 02/12/17 16:05 Urine Cocaine Screen NEGATIVE (NEGATIVE) 02/12/17 16:05 U Cannabinoids Screen POSITIVE (NEGATIVE) H 02/12/17 16:05 Ethyl Alcohol < 5.0 mg/dL 02/12/17 17:47 - DIAGNOSTIC IMAGING Diagnostic Imaging Results: Final report reviewed Diagnostic Imaging Results Comments: CT head: Stable CT head compared with 08/23/2016. No acute intracranial findings. CT cervical spine Degenerative change cervical spine without superimposed acute findings when compared with 06/18/2016. Incidental note made of an enlarged thyroid. Suggest correlation with thyroid ultrasound CTA head 1. No CT evidence for acute intracranial abnormality or enhancing mass. 2. Moderately prominent but old infarct in the medial right parietal occipital region 3. Age indeterminate severe segmental stenosis versus occlusion of the right EYE DROPPER ASSEMBLER at the T2-T3 junction. 4. Patent-appearing distal left ICA stent. 5. Congenitally small versus stenotic proximal left [place] A1 segment. 6. Note definite evidence of patent [place] aneurysm. Given the history of aneurysm, comparison with prior imaging studies that have confirmed the presence of an aneurysm is suggested, if those relevant imaging studies can be provided, a comparison addendum can be generated. 7. Mild right maxillary sinusitis CTA neck No acute abnormality or significant stenosis of the cervical vertebral or carotid arteries. Chest x-ray 1. terminal makeup operator stability of the bilateral hilar enlargement and mediastinal widening consistent with benign adenopathy or pulmonary arterial hypertension 2. No acute cardiopulmonary abnormality. MRI brain 1. Artifact from patient motion significantly limits the diagnostic quality of the study. 2. Again demonstrated is encephalomalacia in the mesial right parietal/ occipital region consistent with the sequelae of remote infarction in the right EYE DROPPER ASSEMBLER territory. In addition, there is hemosiderin along the medial wall of the atrium of the right ventricle, consistent with sequelae of prior hemorrhage in this area. 3. There is a tiny focus of magnetic susceptibility artifact in the left [place] radiata that probably represents hemosiderin from previous microhemorrhage. Main differential diagnostic consideration for microhemorrhage in a patient of the age or prior trauma versus chronic hypertension 4. No other significant intracranial abnormality is identified on the unenhanced brain MRI. In particular there is no evidence of acute infarction on DWI - FOLLOW UP Follow Up: Patient will need to follow up with his primary care physician within the next one to 2 weeks. The patient needs a followup thyroid ultrasound as there was an enlarged thyroid seen on his CT cervical spine. The patient also followup with neurology as he has new onset seizures. Patient has been started on Keppra and will followup with his primary care physician to get a referral for neurology. The patient's CT scans and MRIs did not show any new acute findings. Patient had no further seizures after being started on Keppra. He was prescribed Keppra and we'll continue this medication outpatient. - TIME SPENT Time Spent in Discharge (Minutes): 45
[2017-02-13 14:26] VITALS: BP 165/84
--- NOTE | 2017-02-13 14:59 | MRI Report ---
MRI BRAIN WITHOUT CONTRAST CLINICAL HISTORY: 66-year-old male with history of previous right occipital infarction and cerebral a neurysm. Has left ICA stent. The patient presented in the emergency department with altered mental st atus (nonverbal and barely arousable). The patient had a witnessed seizure that lasted about 2 minute s at home, prior to arrival. Please assess. COMPARISON: Head CT and head neck CT angiogram 02/12/2017 and brain MRI 06/25/2014. TECHNIQUE: 1. T1 sagittal and fat-saturated T2 coronal. 2. Axial T1, MP RAGE, FLAIR, T2, T2*, and DWI. FINDINGS: The patient was not able to hold still for this examination. There is image degradation from patient motion decreases the diagnostic quality of this study. Ventricular size is normal. A well-defined area of encephalomalacia is identified in the mesial right parietal-occipital region, consistent with the sequela of remote infarction. This is in the right VETERINARY PRACTITIONER territory. There is associ ated negative mass effect with asymmetric ex vacuo enlargement of the atrium/posterior body right lat eral ventricle. There appears to be a very mild amount of either disease in the supratentorial brain, manifested as s mall T2 hyperintensities that are scattered throughout the periventricular, deep, and subcortical whi te matter bilaterally. A frontoparietal distribution predominates. Grossly, signal intensity of maico x and white matter is otherwise unremarkable. The intracranial arteries are not well assessed on the sequences provided; however, the CTA performed late yesterday afternoon demonstrates patency of the main intracranial arteries. No abnormal diffusi on restriction is demonstrated. There is magnetic susceptibility artifact, along the medial margin of the atrium of the right lateral ventricle, consistent with hemosiderin from prior hemorrhage. In add ition, a punctate focus of magnetic susceptibility artifact is seen in the left jurado radiata (see i mage 16 of series 1001), probably representing hemosiderin from previous microhemorrhage. No other po tential acute or chronic hemorrhage is demonstrated. There is prominence of extra-axial fluid surrounding the cerebellar hemispheres bilaterally, likely r epresenting expanded CSF space. No obvious abnormal extra-axial fluid collection is demonstrated. Very limited assessment of the orbits reveals no obvious pathology. Again demonstrated is an air-fluid level in the right maxillary sinus. Grossly, the paranasal sinuses are otherwise clear. IMPRESSION: 1. Artifact from patient motion significantly limits the diagnostic quality of this study. 2. Again demonstrated is encephalomalacia in mesial right parietal-occipital region consistent with t he sequela of remote infarction in right VETERINARY PRACTITIONER territory. In addition, there is hemosiderin along the m edial wall of the atrium of right lateral ventricle, consistent with the sequela of prior hemorrhage in this area. 3. There is a tiny focus of magnetic susceptibility artifact in left jur[place] radiata that probably rep resents hemosiderin from previous microhemorrhage. Main differential diagnostic considerations for mi crohemorrhage in a patient of this age are prior trauma versus chronic hypertension. 4. No other significant intracranial abnormality is identified on this unenhanced brain MRI. In parti cular, there is no evidence of acute infarction on DWI. Referring Provider Line: [phone] SITE ID: [id number]
[2017-02-13] MEDS ORDERED: levETIRAcetam 250 MG TABLET PO SCH (21:00)
[2017-02-13] MEDS ORDERED: ATORVASTATIN 40 MG TABLET PO SCH (21:00)
[2017-02-14] MEDS ORDERED: LISINOPRIL 20 MG TABLET PO SCH (09:00)
== END 2017-02-13 15:08 | disposition home or self-care (01) | DRG 101 ==
LOC: EDUNIT# → ED 12:14 → OBS 16:49 → OBSVTOIN 16:51 → MS2 17:33 → ICU 18:36
PROVIDERS: ADMIT Internal Medicine; ATTEND Internal Medicine
DX: R41.82 Altered mental status, unspecified (principal); R25.8 Other abnormal involuntary movements; R45.1 Restlessness and agitation; W07.XXXA Fall from chair, initial encounter; I10 Essential (primary) hypertension; I73.9 Peripheral vascular disease, unspecified; G40.901 Epilepsy, unspecified, not intractable, with status epilepticus; E11.9 Type 2 diabetes mellitus without complications; H40.9 Unspecified glaucoma; I12.9 Hypertensive chronic kidney disease with stage 1 through stage 4 chronic kidney disease, or unspecified chronic kidney disease; E11.22 Type 2 diabetes mellitus with diabetic chronic kidney disease; E11.51 Type 2 diabetes mellitus with diabetic peripheral angiopathy without gangrene; Z86.73 Personal history of transient ischemic attack (TIA), and cerebral infarction without residual deficits; E53.8 Deficiency of other specified B group vitamins; E04.9 Nontoxic goiter, unspecified; I66.21 Occlusion and stenosis of right posterior cerebral artery; E11.42 Type 2 diabetes mellitus with diabetic polyneuropathy; E11.319 Type 2 diabetes mellitus with unspecified diabetic retinopathy without macular edema; N18.9 Chronic kidney disease, unspecified; E78.00 Pure hypercholesterolemia, unspecified; Z86.79 Personal history of other diseases of the circulatory system; Z95.828 Presence of other vascular implants and grafts; Z79.82 Long term (current) use of aspirin; Z79.84 Long term (current) use of oral hypoglycemic drugs; Z89.9 Acquired absence of limb, unspecified
CPT/HCPCS: 36415; 70450; 70496; 70498; 70551; 71010; 72125; 80048; 80053; 80061; 80306; 80320; 81001; 81003; 82140; 82607; 82746; 83036; 83605; 83735; 84100; 84443; 85025; 85610; 86780; 87086; 87150; 93306; 96374; 96376; 99284; 99285

== ENCOUNTER 2017-04-17 13:03 | Outpatient (CLI) | payer MEDICARE, MEDICAID ==
--- NOTE | 2017-04-17 15:52 | Ultrasound Report ---
THYROID ULTRASOUND: 04/17/2017 CLINICAL INDICATION: Enlarged thyroid. COMPARISON: CT of neck 02/12/2017. TECHNIQUE: Real-time scanning was performed with financial sales representative static images obtained. FINDINGS: The right lobe measures 7.0 x 3.4 x 3.0 cm, and the left lobe measures 5.8 x 2.7 x 2.7 cm. The isthmus measures 6 mm. There are multiple cystic and spongiform nodules bilaterally. No dominant suspicious nodule is identified. No lymphadenopathy is appreciated. IMPRESSION: MULTINODULAR GOITER. NO DOMINANT SUSPICIOUS NODULE IS IDENTIFIED. JOB #: [id number] EXT JOB #:[id number]
== END 2017-04-17 13:04 | disposition home or self-care (01) ==
LOC: DI 13:03
PROVIDERS: ATTEND Family Medicine
DX: E04.2 Nontoxic multinodular goiter (principal)
CPT/HCPCS: 76536

== ENCOUNTER 2017-06-01 23:11 | Outpatient (CLI) | payer MEDICARE, MEDICAID | END 2017-06-01 23:12 | disposition critical access hospital (66) | LOC: EMS 23:11 | PROVIDERS: ATTEND Surgery | DX: T78.49XA Other allergy, initial encounter (principal) | CPT/HCPCS: A0425; A0429 ==

== ENCOUNTER 2017-06-01 23:31 | Emergency (ER) | payer MEDICARE, MEDICAID ==
--- NOTE | 2017-06-02 00:45 | ED Physician Documentation ---
PD HPI SKIN - Stated complaint Stated Complaint: BILAT EYE SWELLING - Chief complaint Chief Complaint: Allergic Rx - History obtained from History obtained from: Patient - History of Present Illness Timing - onset: Today Timing - duration: Days (1) Timing - details: Abrupt onset Location: Face (around both eyes (lids and upper cheeks).) Quality / character: Itchy, Swelling. No: Vesicular Associated symptoms: No: Fever, Myalgias, N/V/D Contributing factors: Other (has had new facial cream (almond and he usually uses a coconut butter cream) for the past couple weeks. It is not brand new to him.). No: Exposed to medication, Exposed to food Similar symptoms before: Has not had sx before Recently seen: Not recently seen Review of Systems Constitutional: denies: Fever, Chills Eyes: denies: Loss of vision, Decreased vision Throat: denies: Oral lesions / sores, Sore throat Cardiac: denies: Chest pain / pressure, Palpitations Respiratory: denies: Dyspnea, Cough GI: denies: Nausea, Vomiting Skin: reports: Rash PD PAST MEDICAL HISTORY - Past Medical History Cardiovascular: Hypertension, High cholesterol, Peripheral Vascular Disease Respiratory: None Neuro: CVA Endocrine/Autoimmune: Type 2 diabetes GI: None : None HEENT: Glaucoma Psych: None Musculoskeletal: Osteoarthritis Derm: None - Past Surgical History Past Surgical History: Yes Ortho: Amputation - Present Medications Home Medications: Ambulatory Orders Medication Instructions Recorded Confirmed Amlodipine Besylate 5 mg PO DAILY 06/18/16 06/01/17 Aspirin [Aspirin EC] 81 mg PO DAILY 06/18/16 06/01/17 Metformin HCl [Metformin HCl ER] 500 mg PO BIDWM 06/18/16 06/01/17 Lisinopril 40 mg PO DAILY 02/12/17 06/01/17 Atorvastatin [Lipitor] 80 mg PO QPM #30 tablet 02/13/17 06/01/17 Docusate Sodium [Stool Softener] 250 mg PO DAILY 02/13/17 06/01/17 Gabapentin 100 mg PO DAILY 02/13/17 06/01/17 Meloxicam 15 mg PO DAILY 02/13/17 06/01/17 Tamsulosin HCl 0.4 mg PO DAILY 02/13/17 06/01/17 levETIRAcetam [Keppra] 500 mg PO BID #60 tablet 02/13/17 06/01/17 Betamethasone Valerate 1 applic TP BID PRN #15 cream..g. 06/02/17 - Allergies Allergies/Adverse Reactions: Allergies Allergy/AdvReac Type Severity Reaction Status Date / Time almond oil AdvReac Rash Verified 06/01/17 23:43 - Social History Does the pt smoke?: No Smoking Status: Never smoker Does the pt drink ETOH?: No Does the pt have substance abuse?: Yes - Immunizations Immunizations are current?: Yes - POLST Patient has POLST: No POLST Status: Full Code PD ED PE NORMAL - Vitals Vital signs reviewed: Yes - General General: Alert and oriented X 3, No acute distress, Well developed/nourished - HEENT HEENT: PERRL, EOMI, Moist mucous membranes, Other (no FBs seen nor discharge of the eyes. There is periorbital swelling of lids and upper cheeks. No vesicles. ) - Neck Neck: Supple, no meningeal sign, No adenopathy - Cardiac Cardiac: RRR, No murmur - Respiratory Respiratory: Clear bilaterally - Back Back: No CVA TTP - Derm Derm: Normal color, Warm and dry - Neuro Neuro: Alert and oriented X 3, No motor deficit, Normal speech Results - Vitals Vitals: Vital Signs - 24 hr 06/02/17 02:22 Temperature 36.8 C Heart Rate 88 Respiratory 18 Rate Blood Pressure 122/68 O2 Saturation 98 Oxygen O2 Source [With Activity] Room air O2 Source Room air PD MEDICAL DECISION MAKING - ED course Complexity details: considered differential (presume reaction to the facial cream that he applied. However has been using it for 1-2 weeks, so unclear why today. No other obvious allergen/contact at this time. ), d/w patient Departure - Departure Disposition: 01 Home, Self Care Clinical Impression: Facial swelling Contact dermatitis Qualifiers: Contact dermatitis type: unspecified Contact dermatitis trigger: other chemical product Qualified Code(s): L25.3 - Unspecified contact dermatitis due to other chemical products Condition: Stable Record reviewed to determine appropriate education?: Yes Instructions: ED Dermatitis Contact Follow-Up: Nick Mcgovern MD [Primary Care Provider] - Prescriptions: Betamethasone Valerate 1 applic TP BID PRN #15 cream..g. PRN Reason: Swelling Comments: This swelling around the eyes may be related to the topical lotion [place] cream you are using. Will try some steroid cream topically twice daily and see if it improves in the next couple of days. If it persists or he develops swelling of the lips tongue or throat, recheck. Other considerations may be related to other medications that you take. For example sometimes he can get swelling of the face related to the lisinopril blood pressure medicine that you take. However that is more commonly the lips tongue and throat. So it is not clearly related to that. Will assume the almond cream that you are using right now. Discharge Date/Time: 06/02/17 02:22
[2017-06-02] MEDS ORDERED: DEXAMETHASONE 10 MG/ML VIAL IVP STA (01:09)
[2017-06-02] MEDS ORDERED: DEXAMETHASONE 10 MG/ML VIAL ONE (01:40)
[2017-06-02 02:23] VITALS: BP 122/68
== END 2017-06-02 02:22 | disposition home or self-care (01) ==
LOC: EDUNIT# → ED 23:31 → SUPCPDRO 23:31 → ED 06-02 02:22
DX: L25.3 Unspecified contact dermatitis due to other chemical products (principal); R22.0 Localized swelling, mass and lump, head; I10 Essential (primary) hypertension; E78.00 Pure hypercholesterolemia, unspecified; E11.51 Type 2 diabetes mellitus with diabetic peripheral angiopathy without gangrene; Z79.84 Long term (current) use of oral hypoglycemic drugs; Z86.73 Personal history of transient ischemic attack (TIA), and cerebral infarction without residual deficits; M19.90 Unspecified osteoarthritis, unspecified site; Z79.82 Long term (current) use of aspirin
CPT/HCPCS: 96374; 99283